=== PATIENT | male | born 1945 | race Asian ===

== ENCOUNTER 2016-04-15 09:57 | Day surgery (SDC) | payer MEDICARE, OTHER ==
[~2016-04-15] VITALS: Ht 162.6 cm; Wt 45.3 kg
[~2016-04-15 09:57] MED LIST: ACET325T45 GTB; ALBU18HF INHALATION; AMLO-147 PO; CLON-379 G-TUBE; CRAN450C GTB; DIPH1TAB PO; ESCI10TA PO; HYDR-3670 PO; HYDR-906 GTB; LEVE-5 PO; LISI20TA11 PO; LOPE2CAP GTB; METO25TA4 GTB; NPH,100V SQ; ONDA4TAB35 GTB; PANT40TA4 GTB; POTASSIUM LIQUID GTB; PRD1OP5 RIGHT EYE; PROC5TAB9 GTB; THIA100T10 GTB
[2016-04-15] MEDS ORDERED: LEVE250T5 PO (11:47)
[2016-04-15] MEDS ORDERED: TAMS0.4C2 PO (11:47)
[2016-04-15] MEDS ORDERED: NOVO3I SC (11:47)
[2016-04-15] MEDS ORDERED: OMEP40CA6 PO (11:47)
[2016-04-15] MEDS ORDERED: METO25TA4 PO (11:47)
[2016-04-15] MEDS ORDERED: AMLO-147 PO (11:47)
[2016-04-15] MEDS ORDERED: DIVA125T2 PO (11:47)
[2016-04-15 11:49] VITALS: Ht 162.6 cm; Wt 45.3 kg
[2016-04-15 12:00] VITALS: BP 134/63; PULSE 79; RESP 16
[2016-04-15 12:01] LABS: CREATININE 8.06 mg/dl (0.61-1.24); POTASSIUM 4.7 mmol/L (3.5-5.1)
[2016-04-15 12:02] LABS: CALCIUM 7.9 mg/dl (8.4-10.2)
[2016-04-15] MEDS ORDERED: LIDOCAINE 1% (MDV) 20 ML INJ ONE (15:40)
[2016-04-15] MEDS ORDERED: IODIXANOL LOCM 100 ML BTL ONE (15:40)
[2016-04-15] MEDS ORDERED: HEPARIN 1000 UNITS/ML 10 ML INJ ONE (15:58)
[2016-04-15 16:34] VITALS: BP 161/74; PULSE 103; RESP 18
--- NOTE | 2016-04-15 17:49 | OPR ---
DATE OF OPERATION: 04/15/2016 SURGEON: Naseem Thakur MD FLUOROSCOPY MAURICE: Andrews Ortega DO PREOPERATIVE DIAGNOSIS: Malfunctioning left upper extremity arteriovenous fistula, non-maturing. POSTOPERATIVE DIAGNOSIS: Malfunctioning left upper extremity arteriovenous fistula, non-maturing. ANESTHESIA: Local with sedation. BLOOD LOSS: Minimal. COMPLICATIONS: None. HEPARIN: 3500 units of heparin intravenously. CONTRAST: As recorded. ACCESS: 6-German sheath at the left upper extremity fistula. CLOSURE: Manual compression, 3-0 nylon suture. INDICATIONS: This is a 70-year-old gentleman who has presented with a non-maturing and malfunctioni ng left upper extremity fistula in which he has not been able to have successful fistula sessions du ring his dialysis. The patient had been informed of the alternatives, risks and benefits of angiogr am, balloon angioplasty and stenting. Risks include but not limited to bleeding, thrombosis, emboli zation, myocardial infarction, , stroke, device malfunction, infection, nephrotoxicity, and pat ient has agreed to proceed. PROCEDURE: 1. Ultrasound-guided access of the left upper extremity fistula. 2. Left upper extremity fistulogram. 3. Central venogram involving subclavian vein, superior vena cava and brachiocephalic vein. 4. Left basilic vein balloon angioplasty using a 6 mm x 100 cm balloon. FINDINGS: Patent fistula with new intimal hyperplasia and stenosis near the arterial anastomosis an d in the proximal and mid aspect of the basilic vein. His central veins are all patent, brachial ve in, axillary vein, subclavian vein, brachiocephalic vein and superior vena cava. DESCRIPTION OF PROCEDURE: The patient was brought into the angio suite and positioned in supine pos ition on the fluoroscopic table. Sedation was administered without any complications. Left upper e xtremity was shaved, prepped and draped in usual standard sterile fashion. Time-out and the appropr iate site was marked and confirmed. Local anesthesia was infiltrated in the region of the left uppe r extremity fistula. The fistula was then cannulated with a micro access needle under ultrasound guidance, and the guidew tiago was advanced into the brachial artery under fluoroscopic guidance. The needle was then removed, and the micro catheter was placed. Multi-station fistulogram was performed of the upper extremity and the central veins. Findings are noted as above. At this point, it was determined to perform a venoplasty of the areas of stenosis and new intimal hyperplasia within the left basilic vein. Using a 6 mm x 100 cm balloon, venoplasty was performed of the basilic vein without any complications. N o residual stenosis was identified at the intervention. The patient tolerated the procedure well, a nd all catheters and wires were removed. Then using a 3-0 nylon suture, the puncture site was close d. The patient tolerated procedure well and was taken to the recovery room without any issues. PLAN: Will schedule the patient to be seen in 2 weeks with us in the office and have his fistula ac cess for his dialysis sessions. Dictated By: NASEEM LI/SUSANA Conf#: [id number] DID#: [id number]
== END 2016-04-15 16:34 | disposition home or self-care (01) ==
LOC: SDS 09:57
PROVIDERS: ATTEND Student in an Organized Health Care Education/Training Program
DX: T82.898A Other specified complication of vascular prosthetic devices, implants and grafts, initial encounter (principal); Y84.8 Other medical procedures as the cause of abnormal reaction of the patient, or of later complication, without mention of misadventure at the time of the procedure; Y92.89 Other specified places as the place of occurrence of the external cause; I12.0 Hypertensive chronic kidney disease with stage 5 chronic kidney disease or end stage renal disease; N18.6 End stage renal disease
CPT/HCPCS: 36901; 36902; 80048; 82962; C1725; C1769; C1894; J1644; Q9967